=== PATIENT | male | born 1945 | race Caucasian/White ===

== ENCOUNTER 2023-02-19 18:08 | Observation (INO) | payer MEDICARE, SELFPAY ==
[2023-02-19] VITALS (12 sets, daily range): BP systolic 115–159; BP diastolic 59–85; PULSE 97–118; RESP 13–31; TEMP 36.6–36.8; O2SAT 91–97; BMI 32.8
--- NOTE | 2023-02-19 18:30 | DI.RAD.S_ITS ---
PROCEDURE: XR CHEST 1V INDICATIONS: chest pain TECHNIQUE: One view of the chest was acquired. COMPARISON: None. FINDINGS: Surgical changes and devices: None. Lungs and pleura: Lungs are clear. No pleural effusions or pneumothorax. Mediastinum: Mediastinal contours appear normal. Heart size is normal. Bones and chest wall: No suspicious bony lesions. Overlying soft tissues appear unremarkable. IMPRESSION: No acute cardiopulmonary pathology. Dictated by: Moses Dickinson M.D. on 02/19/2023 at 19:07 Approved by: Moses Dickinson M.D. on 02/19/2023 at 19:07
[2023-02-19] MEDS: SODIUM CHLORIDE 0.9% 1,000 ML 1000 ML IV (18:56)
[2023-02-19 18:57] LABS: Add Manual Diff / Slide Review NO; Basophils Absolute Auto 100 /uL (0-100); Basophils Percent Auto 0.7 % (0-2); Eosinophils Absolute Auto 400 /uL (0-450); Eosinophils Percent Auto 3.3 % (2-4); Hemoglobin 12.5 g/dL (13.5-17.5); Lymphocytes Absolute Auto 1700 /uL (1100-4500); Lymphocytes Percent Auto 13.7 % (25-40); Mean Corpuscular HGB Conc 32.7 % (30-36); Mean Corpuscular Volume 100.9 fL (80-100); Monocytes Absolute Auto 1200 /uL (0-900); Monocytes Percent Auto 9.3 % (3-14); Neutrophils Absolute Auto 9100 /uL (1500-7000); Platelet Count 276 X10^3/uL (150-400); Red Blood Cell Count 3.77 X10^6/uL (4.5-5.9); Red Cell Distribution Width 13.7 % (11.6-14.8); White Blood Cell Count 12.5 X10^3/uL (4.5-11.0)
--- NOTE | 2023-02-19 19:01 | PC.NURSE ---
Pt's skin is generalized bright red and flaky. Pt reports his skin is painful. He has a softball sixe wound on his right lower extremity that the pt does not know how long has been there. Wound bed is black and has slough. Wound culture obtained.
--- NOTE | 2023-02-19 19:10 | ED_ITS ---
HPI - SOB/Dyspnea General Chief Complaint: Shortness of Breath/Dyspnea Stated Complaint: sent for a CT Time Seen by Provider: 02/19/23 18:32 Source: patient Mode of arrival: Wheelchair Limitations: no limitations History of Present Illness HPI Narrative: Patient 77-year-old male history of psoriasis, hypertension COPD presenting today with a variety of symptoms. He has been getting light therapy for his psoriasis since June however his ex- and he knows that his skin has gotten extremely red over the past 1 month. He has a sore on his right leg which is painful and oozing it has been there for awhile. Does not seem to be any worse. He was seen by his PCP today concern for bilateral lower extremity swelling possible DVT and possible PE. He does report that he is a little more short of breath he denies any orthopnea but definitely has dyspnea with exertion. He denies any chest pain palpitations. He has not had any fever. Reports going to [facility] couple weeks ago where they did blood work thought that he might have a blood infection put him on steroids and an antibiotic. Ex- reports that he is not any better. Related Data Home Medications Medication Instructions Recorded Confirmed atorvastatin 10 mg tablet 10 mg PO DAILY 02/19/23 02/19/23 lisinopril 20 mg tablet 20 mg PO DAILY 02/19/23 02/19/23 Allergies Allergy/AdvReac Type Severity Reaction Status Date / Time No Known Drug Allergies Allergy Verified 02/19/23 19:05 Patient History Social History household members: none Smoking Status: Current every day smoker alcohol intake: former Smoking Status: Current every day smoker tobacco type: cigarettes alcohol intake frequency: 0-2 drinks per day Substance Use Type: does not use Exam Initial Vital Signs Initial Vital Signs: Vital Signs Temperature 98.3 F 02/19/23 18:14 Pulse Rate 110 H 02/19/23 18:14 Respiratory Rate 22 02/19/23 18:14 Blood Pressure 143/73 H 02/19/23 18:14 Pulse Oximetry 97 02/19/23 18:14 Oxygen Delivery Method Room Air 02/19/23 18:14 GENERAL: Alert 77-year-old male and in no acute distress. HEENT: Head atraumatic,EOMI, pupils reactive, face symmetric, moist mucous membranes. No mucosal sloughing CARDIOVASCULAR: Tachycardic regular RESPIRATORY: Slight wheezing bilaterally no rales or rhonchi no conversational dyspnea ABDOMEN: Soft, nontender. Normoactive bowel sounds all 4 quadrants. No guarding or rebound. EXTREMITIES: Normal range of motion, no clubbing. Bilateral pitting edema left greater than right. Neurovascularly intact NEUROLOGICAL: Alert and oriented x4.Normal gait and speech. Cranial nerves II through XII grossly intact. SKIN: Erythematous skin from neck to toes, blanchable, wound right lateral calf draining crusted over appears chronic but very foul smelling. 6cmx 6cm. Rest of extremely dry and flaky Course Orders Ordered: ED Orders 02/19/23 18:30 XR chest 1V Stat Wound Culture and Gram Stain Stat EKG-12 Lead Stat 02/19/23 18:40 Complete Blood Count AUTO DIFF Stat Comprehensive Metabolic Panel Stat D Dimer Stat Lipase Stat Magnesium Stat NT-proBNP (BNP-Adult 18+) Stat PTT Partial Thromboplastin Jarocho Stat Procalcitonin Stat Prothrombin Time INR Stat Troponin & CK Cardiac Panel Stat 02/19/23 19:08 Blood Culture Stat 02/19/23 19:13 US periph venous low extrem bi Stat 02/19/23 19:40 CT angio chest PE protocol Stat Acetaminophen (Acetaminophen 325 Mg Tablet) 650 mg PO Q6H PRN PRN Reason: Fever/Mild Pain (1-3) Atorvastatin Calcium (Atorvastatin 20 Mg Tablet) 10 mg PO DAILY ELY Calcium Carbonate (Calcium Carbonate 500 Mg Tab) 1,000 mg PO Q4HR PRN PRN Reason: Dyspepsia Hydralazine HCl (Hydralazine 25 Mg Tablet) 25 mg PO Q6HR PRN PRN Reason: Hypertension Hydromorphone HCl (Hydromorphone 0.5 Mg Inj) 0.5 mg IV Q2H PRN PRN Reason: Pain, Severe (7-10) Ceftriaxone Sodium 2,000 mg/ (Sodium Chloride) 100 mls @ 200 mls/hr IV Q24H ELY Lisinopril (Lisinopril 20 Mg Tablet) 20 mg PO DAILY ELY Melatonin (Melatonin 3 Mg Tablet) 9 mg PO BEDTIME PRN PRN Reason: insomnia Methylprednisolone (Methylprednisolone 125 Mg/2 Ml Vial) 60 mg IV Q8H ELY Naloxone HCl (Naloxone 0.4 Mg/Ml Vial) 0.2 mg IV Q2MIN PRN PRN Reason: Opiate Reversal Ondansetron HCl (Ondansetron 4 Mg/2 Ml Inj) 4 mg IV Q8HR PRN PRN Reason: Nausea And Vomiting Oxycodone HCl (Oxycodone Ir 5 Mg Tablet) 5 mg PO Q3H PRN PRN Reason: Pain, Moderate (4-6) Discontinued Medications Albuterol/Ipratropium (Albuterol/Ipratropium 3 Ml Ampul) 3 ml INH NOW ONE Stop: 02/19/23 19:11 Last Admin: 02/19/23 19:18 Dose: 3 ml Documented By: Sodium Chloride (Normal Saline 0.9%) 1,000 mls @ 1,000 mls/hr IV BOLUS ONE Stop: 02/19/23 19:32 Last Infusion: 02/19/23 20:04 Dose: Infused Documented By: Admin: 02/19/23 18:56 Dose: 1,000 mls/hr Documented By: MARKEL Ceftriaxone Sodium 2,000 mg/ (Sodium Chloride) 100 mls @ 200 mls/hr IV NOW ONE Stop: 02/19/23 22:31 Last Infusion: 02/19/23 23:10 Dose: Infused Documented By: Admin: 02/19/23 22:40 Dose: 200 mls/hr Documented By: DELORES Methylprednisolone (Methylprednisolone 125 Mg/2 Ml Vial) 125 mg IV NOW ONE Stop: 02/19/23 19:11 Last Admin: 02/19/23 19:25 Dose: 125 mg Documented By: DELORES Vital Signs Vital signs: Vital Signs - 8 hr 02/19/23 18:14 02/19/23 18:33 02/19/23 18:33 Temperature 98.3 F Pulse Rate 110 H 118 H Respiratory Rate 22 Blood Pressure 143/73 H 144/76 H Pulse Oximetry 97 94 Oxygen Delivery Method Room Air Oxygen Flow Rate 02/19/23 19:00 02/19/23 19:00 02/19/23 19:30 Temperature Pulse Rate 114 H Respiratory Rate 30 H Blood Pressure 122/80 115/66 Pulse Oximetry 95 Oxygen Delivery Method Oxygen Flow Rate 02/19/23 19:30 02/19/23 20:00 02/19/23 20:00 Temperature Pulse Rate 106 H 104 H Respiratory Rate 18 24 Blood Pressure 125/63 Pulse Oximetry 94 94 Oxygen Delivery Method Oxygen Flow Rate 02/19/23 20:30 02/19/23 20:30 02/19/23 21:00 Temperature Pulse Rate 101 H Respiratory Rate 15 Blood Pressure 130/63 125/60 Pulse Oximetry 91 Oxygen Delivery Method Oxygen Flow Rate 02/19/23 21:00 02/19/23 21:30 02/19/23 21:30 Temperature Pulse Rate 99 H 97 H Respiratory Rate 20 17 Blood Pressure 125/59 L Pulse Oximetry 93 91 Oxygen Delivery Method Room Air Oxygen Flow Rate 02/19/23 22:00 02/19/23 22:00 02/19/23 22:30 Temperature Pulse Rate 106 H Respiratory Rate 31 H Blood Pressure 138/85 130/69 Pulse Oximetry 95 Oxygen Delivery Method Nasal Cannula Oxygen Flow Rate 2 02/19/23 22:30 Temperature Pulse Rate 106 H Respiratory Rate 21 Blood Pressure Pulse Oximetry 94 Oxygen Delivery Method Oxygen Flow Rate MDM - SOB/Dyspnea Lab Data 02/19/23 18:40 02/19/23 18:40 Labs: Lab Results 02/19/23 Range/Units 18:40 WBC 12.5 H (4.5-11.0) X10^3/uL RBC 3.77 L (4.5-5.9) X10^6/uL Hgb 12.5 L (13.5-17.5) g/dL Hct 38.0 L (41-53) % MCV 100.9 H (80-100) fL MCH 33.0 (26-34) PG MCHC 32.7 (30-36) % RDW 13.7 (11.6-14.8) % Plt Count 276 (150-400) X10^3/uL Neut % (Auto) 73.0 (50-75) % Lymph % (Auto) 13.7 L (25-40) % [place] % (Auto) 9.3 (3-14) % Eos % (Auto) 3.3 (2-4) % Baso % (Auto) 0.7 (0-2) % Neut # (Auto) 9100 H (6256-4904) /uL Lymph # (Auto) 1700 (7023-3721) /uL [place] # (Auto) 1200 H (0-900) /uL Eos # (Auto) 400 (0-450) /uL Baso # (Auto) 100 (0-100) /uL PT 12.2 (10.1-12.7) SECONDS INR 1.1 (0.9-1.3) APTT 32 (26-36) SECONDS D-Dimer 4006 H (<500) ng/ml Sodium 140 (137-145) mmol/L Potassium 4.0 (3.4-5.1) mmol/L Chloride 105 (98-107) mmol/L Carbon Dioxide 26 (22-32) mmol/L BUN 22 H (9-20) mg/dL Creatinine 0.89 (0.66-1.25) mg/dL Estimated GFR > 60 (>60) mL/min BUN/Creatinine Ratio 24.7 H (6-22) Glucose 88 (80-110) mg/dL Calcium 9.2 (8.4-10.2) mg/dL Magnesium 2.0 (1.6-2.3) mg/dL Total Bilirubin 0.2 (0.2-1.3) mg/dL AST 31 (17-59) IU/L ALT 29 (<50) IU/L Alkaline Phosphatase 79 (38-126) U/L Total Creatine Kinase 84 (55-170) U/L Troponin I < 0.012 (0.01-0.034) ng/mL NT-Pro-B Natriuret Pep 94 (<450) pg/mL Total Protein 7.5 (6.3-8.2) g/dL Albumin 3.9 (3.5-5.0) g/dL Globulin 3.6 (1.7-4.1) g/dL Albumin/Globulin Ratio 1.1 (1.0-2.8) Lipase 52 (23-300) U/L Procalcitonin 0.09 (<0.5) ng/mL Imaging Data Chest x-ray: Radiologist's Impression: PROCEDURE: XR CHEST 1V INDICATIONS: chest pain TECHNIQUE: One view of the chest was acquired. COMPARISON: None. FINDINGS: Surgical changes and devices: None. Lungs and pleura: Lungs are clear. No pleural effusions or pneumothorax. Mediastinum: Mediastinal contours appear normal. Heart size is normal. Bones and chest wall: No suspicious bony lesions. Overlying soft tissues appear unremarkable. IMPRESSION: No acute cardiopulmonary pathology. Dictated by: Moses Dickinson M.D. on 02/19/2023 at 19:07 US - DVT: Radiologist's Impression: PROCEDURE: US PERIPH VENOUS LOW EXTREM BI INDICATIONS: EDEMA TECHNIQUE: Real-time imaging, as well as color and pulse Doppler interrogation, were performed of the deep veins of both legs from the inguinal ligament to the popliteal fossa, with documentation of the visualized calf veins. COMPARISON: None. FINDINGS: Right: The common femoral, femoral and popliteal veins are normally compressible, and free of intraluminal thrombus. Color and pulse Doppler demonstrate normal phasic intravascular flow. There is normal augmentation response to distal compression maneuver. Calf veins are not well seen due to soft tissue edema. Left: The common femoral, femoral and popliteal veins are normally compressible, and free of intraluminal thrombus. Color and pulse Doppler demonstrate normal phasic intravascular flow. There is normal augmentation response to distal compression maneuver. Calf veins are not well seen due to soft tissue edema. IMPRESSION: No findings of deep venous thrombosis in either lower extremity. Dictated by: Teodoro Mak M.D. on 02/19/2023 at 20:06 CT scan - chest: Radiologist's Impression: PROCEDURE: CT ANGIO CHEST PE PROTOCOL INDICATIONS: sob with very high dimer TECHNIQUE: After the administration of intravenous contrast, 2 mm thick sections acquired from the pulmonary apices to the posterior costophrenic angles. 3-dimensional maximum intensity projection (MIP) coronal and sagittal reformats were then acquired through the thorax. For radiation dose reduction, the following was used: automated exposure control, adjustment of mA and/or kV according to patient size. COMPARISON: [facility], , XR CHEST 1V, 02/19/2023, 18:36. FINDINGS: Image quality: Excellent. Pulmonary arteries: Pulmonary arteries are normal in size, and demonstrate no intraluminal filling defects to suggest central pulmonary embolism. Lungs and pleura: No focal consolidation. Mild subpleural septal thickening. No pleural effusions or pneumothorax. Central and peripheral airways are patent. Mediastinum: Heart size is normal, without pericardial effusion. Moderate coronary artery atherosclerosis. No mediastinal or hilar adenopathy. Thoracic aorta is normal in caliber and enhancement. Esophagus is normal in caliber. There is a small hiatal hernia. Bones and chest wall: No suspicious bony lesions. Ribs and thoracic spine appear intact throughout. Thyroid gland is unremarkable. No axillary or supraclavicular adenopathy. Abdomen: There is a 2.7 cm is aphasic cyst in the superior pole of the right kidney. Visualized upper abdominal solid organs appear normal in the early arterial phase of enhancement. IMPRESSION: 1. No evidence for pulmonary embolism. 2. Moderate coronary artery atherosclerosis. 3. Mild subpleural septal thickening. No focal consolidation. No pleural effusion or pneumothorax. Dictated by: Teodoro Mak M.D. on 02/19/2023 at 20:51 ECG Data Interpretation: Sinus rhythm rate 107 IA interval 168 QRS 120 QTC 504 right bundle-branch block present no priors to compare MDM Narrative Medical decision making narrative: Patient 77-year-old male presenting today with variety of symptoms. He does have some wheezing shortness of breath history of COPD on exam. He is given Solu-Medrol and DuoNeb requiring 1-2 L of oxygen. No obvious shortness of breath or tachypnea. He initially was sent here by PCP concern for DVT and PE. His D-dimer is found to be significantly elevated 4000. Bilateral ultrasounds not show any DVT CT angio ordered she is not show any pulmonary embolism. BNP is negative troponin is negative. But he does have significant swelling of his lower extremities. He has a rash and a right leg wound. He reports that he has psoriasis followed by Dermatology but not actually seen the doctor he was or twice a week for light therapy. He has been doing this for number months he did not become erythematous until this month and it has gotten significantly worse. He got a lot of dry flaky skin. Mucous membranes are not involved. He was on Keflex for a week however this started before then. No concern for Guo-Elder or TEN at this time without mucosal involvement and ongoing for number weeks. Full- body impressive erythema possible reaction I think unlikely to be cellulitic. He is got this wound on his right leg which has been there for awhile but getting worse in his very foul-smelling. Wound culture has been sent. Think this is some sort of reaction versus flare of psoriasis. He does not have any blisters. He does have mild leukocytosis of 12 but was on steroids for awhile. He is afebrile his lactate and procalcitonin are negative. Records from [facility] have been received and reviewed Bailey Plata, hospitalist updated patient's symptoms test results discussion about how to proceed. At this time agrees may benefit from admission. Discharge Plan Departure Patient Disposition: Admitted As Inpatient Clinical Impression: COPD (chronic obstructive pulmonary disease), Cellulitis Admit Date/Time: 02/19/23 22:30 Admit Provider: Allen Avalos
[2023-02-19 19:11] LABS: INR 1.1 (0.9-1.3); Prothrombin Time 12.2 SECONDS (10.1-12.7)
[2023-02-19 19:13] LABS: PTT Partial Thromboplastin Tim 32 SECONDS (26-36)
--- NOTE | 2023-02-19 19:13 | DI.US.S_ITS ---
PROCEDURE: US PERIPH VENOUS LOW EXTREM BI INDICATIONS: EDEMA TECHNIQUE: Real-time imaging, as well as color and pulse Doppler interrogation, were performed of the deep veins of both legs from the inguinal ligament to the popliteal fossa, with documentation of the visualized calf veins. COMPARISON: None. FINDINGS: Right: The common femoral, femoral and popliteal veins are normally compressible, and free of intraluminal thrombus. Color and pulse Doppler demonstrate normal phasic intravascular flow. There is normal augmentation response to distal compression maneuver. Calf veins are not well seen due to soft tissue edema. Left: The common femoral, femoral and popliteal veins are normally compressible, and free of intraluminal thrombus. Color and pulse Doppler demonstrate normal phasic intravascular flow. There is normal augmentation response to distal compression maneuver. Calf veins are not well seen due to soft tissue edema. IMPRESSION: No findings of deep venous thrombosis in either lower extremity. Dictated by: Teodoro Mak M.D. on 02/19/2023 at 20:06 Approved by: Teodoro Mak M.D. on 02/19/2023 at 20:08
[2023-02-19 19:17] LABS: Alanine Aminotransferase 29 IU/L (<50); Albumin 3.9 g/dL (3.5-5.0); Albumin Globulin Ratio 1.1 (1.0-2.8); Alkaline Phosphatase 79 U/L (38-126); Aspartate Aminotransferase 31 IU/L (17-59); BUN Creatinine Ratio 24.7 (6-22); Bilirubin Total 0.2 mg/dL (0.2-1.3); Blood Urea Nitrogen 22 mg/dL (9-20); Calcium 9.2 mg/dL (8.4-10.2); Carbon Dioxide 26 mmol/L (22-32); Chloride 105 mmol/L (98-107); Creatine Kinase 84 U/L (55-170); Estimated Glomerular Filt Rate > 60 mL/min (>60); Globulin 3.6 g/dL (1.7-4.1); Glucose 88 mg/dL (80-110); HEMOLYSIS < 15 (0-50); Lipase 52 U/L (23-300); Sodium 140 mmol/L (137-145); Total Protein 7.5 g/dL (6.3-8.2)
[2023-02-19] MEDS: ALBUTEROL/IPRATROPIUM 3 ML AMPUL INH (19:18)
[2023-02-19 19:20] LABS: D Dimer 4006 ng/ml (<500)
[2023-02-19] MEDS: methylPREDNISolone 125 MG/2 ML VIAL IV (19:25)
[2023-02-19 19:28] LABS: Troponin I < 0.012 ng/mL (0.01-0.034)
[2023-02-19 19:34] LABS: NT-proBNP (BNP-Adult 18+) 94 pg/mL (<450); Procalcitonin 0.09 ng/mL (<0.5)
--- NOTE | 2023-02-19 19:40 | DI.CT.S_ITS ---
PROCEDURE: CT ANGIO CHEST PE PROTOCOL INDICATIONS: sob with very high dimer TECHNIQUE: After the administration of intravenous contrast, 2 mm thick sections acquired from the pulmonary apices to the posterior costophrenic angles. 3-dimensional maximum intensity projection (MIP) coronal and sagittal reformats were then acquired through the thorax. For radiation dose reduction, the following was used: automated exposure control, adjustment of mA and/or kV according to patient size. COMPARISON: [facility], CR, XR CHEST 1V, 02/19/2023, 18:36. FINDINGS: Image quality: Excellent. Pulmonary arteries: Pulmonary arteries are normal in size, and demonstrate no intraluminal filling defects to suggest central pulmonary embolism. Lungs and pleura: No focal consolidation. Mild subpleural septal thickening. No pleural effusions or pneumothorax. Central and peripheral airways are patent. Mediastinum: Heart size is normal, without pericardial effusion. Moderate coronary artery atherosclerosis. No mediastinal or hilar adenopathy. Thoracic aorta is normal in caliber and enhancement. Esophagus is normal in caliber. There is a small hiatal hernia. Bones and chest wall: No suspicious bony lesions. Ribs and thoracic spine appear intact throughout. Thyroid gland is unremarkable. No axillary or supraclavicular adenopathy. Abdomen: There is a 2.7 cm is aphasic cyst in the superior pole of the right kidney. Visualized upper abdominal solid organs appear normal in the early arterial phase of enhancement. IMPRESSION: 1. No evidence for pulmonary embolism. 2. Moderate coronary artery atherosclerosis. 3. Mild subpleural septal thickening. No focal consolidation. No pleural effusion or pneumothorax. Dictated by: Teodoro Mak M.D. on 02/19/2023 at 20:51 Approved by: Teodoro Mak M.D. on 02/19/2023 at 20:56
[2023-02-19] MEDS: cefTRIAXone 2,000 MG in SODIUM CHLORIDE 0.9% 100 ML 200 MG IV (22:40)
--- NOTE | 2023-02-20 00:23 | P.HP_ITS ---
History of Present Illness History of Present Illness Chief complaint: sent for a CT Narrative: 77 years old male with history of psoriasis, hypertension, hyperlipidemia, COPD, presented to the ER after referral by his PCP for concern for bilateral lower extremity swelling and rule out of DVT/PE. He also reports some mild shortness of breath on exertion. He is currently on light therapy for his psoriasis since June but not getting better. In the last month he developed some erythema around his body. He also reports right leg infection develop after had blister and subsequent infection. He was on some p.o. antibiotics without any improvement. Denies any fever, cough, chest pain, palpitations, nausea, vomiting, abdominal pain, diarrhea or dysuria. In the ER he was given ceftriaxone 2 g IV, methylprednisolone 125 mg IV and 1 L of bolus NS. Initial laboratory shows WBC 12.5, H&H 12.5/38, platelets 276, D-dimer 4006, sodium 140, potassium 4, creatinine 0.89, glucose 88, LFTs normal, troponin 0.01, BNP 94, lipase 52, procalcitonin 0.09. CT of the chest negative for PE, Doppler ultrasound negative for DVT, chest x-ray unremarkable. Vital signs shows temperature 97.9, pulse 112, blood pressure 159/76, pulse oximeter 93% on room air. [facility] Social History household members: none Smoking Status: Current every day smoker alcohol intake: former Meds Home Medications and Allergies Home Medications Medication Instructions Recorded Confirmed Type atorvastatin 10 mg tablet 10 mg PO DAILY 02/19/23 02/19/23 History lisinopril 20 mg tablet 20 mg PO DAILY 02/19/23 02/19/23 History Allergies Allergy/AdvReac Type Severity Reaction Status Date / Time No Known Drug Allergies Allergy Verified 02/19/23 19:05 Review of Systems Review of Systems ROS: Yes All systems reviewed with the patient and are negative except as otherwise documented Constitutional Constitutional: Reports as per HPI and Reports system reviewed and no additional complaints, except as documented Eyes Eyes: Reports as per HPI and Reports system reviewed and no additional complaints, except as documented ENT Ears, Nose, Mouth, and Throat: Yes as per HPI and Yes system reviewed and no additional complaints, except as documented Cardiovascular Cardiovascular: Reports system reviewed and no additional complaints, except as documented Respiratory Respiratory: Reports system reviewed and no additional complaints, except as documented Gastrointestinal Gastrointestinal: Reports system reviewed and no additional complaints, except as documented Genitourinary Genitourinary: Reports system reviewed and no additional complaints, except as documented Musculoskeletal Musculoskeletal: Reports system reviewed and no additional complaints, except as documented, Reports abnormal gait and Reports numbness Neurologic Neurologic: Reports system reviewed and no additional complaints, except as documented, Reports abnormal gait, Reports confusion and Reports numbness Psychiatric Psychiatric: Reports system reviewed and no additional complaints, except as documented and Reports confusion Exam Vital Signs (past 8 hours): - 02/19/23 18:14 02/19/23 18:33 02/19/23 18:33 Temperature 98.3 F Pulse Rate 110 H 118 H Respiratory Rate 22 Blood Pressure 143/73 H 144/76 H Pulse Oximetry 97 94 Oxygen Delivery Method Room Air Oxygen Flow Rate 02/19/23 19:00 02/19/23 19:00 02/19/23 19:30 Temperature Pulse Rate 114 H Respiratory Rate 30 H Blood Pressure 122/80 115/66 Pulse Oximetry 95 Oxygen Delivery Method Oxygen Flow Rate 02/19/23 19:30 02/19/23 20:00 02/19/23 20:00 Temperature Pulse Rate 106 H 104 H Respiratory Rate 18 24 Blood Pressure 125/63 Pulse Oximetry 94 94 Oxygen Delivery Method Oxygen Flow Rate 02/19/23 20:30 02/19/23 20:30 02/19/23 21:00 Temperature Pulse Rate 101 H Respiratory Rate 15 Blood Pressure 130/63 125/60 Pulse Oximetry 91 Oxygen Delivery Method Oxygen Flow Rate 02/19/23 21:00 02/19/23 21:30 02/19/23 21:30 Temperature Pulse Rate 99 H 97 H Respiratory Rate 20 17 Blood Pressure 125/59 L Pulse Oximetry 93 91 Oxygen Delivery Method Room Air Oxygen Flow Rate 02/19/23 22:00 02/19/23 22:00 02/19/23 22:30 Temperature Pulse Rate 106 H Respiratory Rate 31 H Blood Pressure 138/85 130/69 Pulse Oximetry 95 Oxygen Delivery Method Nasal Cannula Oxygen Flow Rate 2 02/19/23 22:30 02/19/23 23:00 02/19/23 23:00 Temperature Pulse Rate 106 H 105 H Respiratory Rate 21 13 Blood Pressure 125/66 Pulse Oximetry 94 95 Oxygen Delivery Method Oxygen Flow Rate 02/19/23 23:40 02/19/23 23:53 Temperature 97.9 F Pulse Rate 112 H Respiratory Rate 19 Blood Pressure 159/76 H Pulse Oximetry 93 Oxygen Delivery Method Room Air Oxygen Flow Rate 0 Oxygen Delivery Method Room Air Oxygen Flow Rate 0 Const General: cooperative, comfortable and well developed Orientation: alert and oriented x3 [facility] Head: normal to inspection, normocephalic and atraumatic Face and sinus: normal facial exam Mouth: oral mucosae normal and moist mucous membranes Throat: posterior oropharynx normal Eyes General: appearance normal, both eyes and all related structures Pupils: PERRL EOM: EOM intact bilaterally Neck Neck: normal visual inspection and full ROM Chest Chest: normal inspection of the chest Resp Effort & Inspection: normal respiratory effort and able to speak in complete sentences Auscultation: clear to auscultation bilaterally Cardio Palpation: normal PMI Rate: regular rate Rhythm: regular rhythm Heart Sounds: S1 normal and S2 normal GI Inspection: normal to inspection Palpation: soft and no hepatosplenomegaly Auscultation: normal bowel sounds Skin General: no rashes or lesions noted Lesions: no lesions Rashes: no rashes Trauma: no lacerations or abrasions Neuro General: patient alert, patient awake, patient oriented x3 and no focal motor deficits Cranial Nerves: CN's II-XI intact bilaterally Cognition: normal cognition Speech: speech normal Gait: normal gait Motor: muscle tone normal throughout Sensory Exam: no sensory deficits noted Extrem General: full ROM and no calf tenderness Psych Appearance: grossly normal Mental Status: mental status grossly normal Speech and Movement: speech and movement normal Objective Labs 02/19/23 18:40 02/19/23 18:40 Labs: Laboratory Results - last 24 hr 02/19/23 18:40 WBC 12.5 H RBC 3.77 L Hgb 12.5 L Hct 38.0 L MCV 100.9 H MCH 33.0 MCHC 32.7 RDW 13.7 Plt Count 276 Neut % (Auto) 73.0 Lymph % (Auto) 13.7 L [place] % (Auto) 9.3 Eos % (Auto) 3.3 Baso % (Auto) 0.7 Neut # (Auto) 9100 H Lymph # (Auto) 1700 [place] # (Auto) 1200 H Eos # (Auto) 400 Baso # (Auto) 100 PT 12.2 INR 1.1 APTT 32 D-Dimer 4006 H Sodium 140 Potassium 4.0 Chloride 105 Carbon Dioxide 26 BUN 22 H Creatinine 0.89 Estimated GFR > 60 BUN/Creatinine Ratio 24.7 H Glucose 88 Calcium 9.2 Magnesium 2.0 Total Bilirubin 0.2 AST 31 ALT 29 Alkaline Phosphatase 79 Total Creatine Kinase 84 Troponin I < 0.012 NT-Pro-B Natriuret Pep 94 Total Protein 7.5 Albumin 3.9 Globulin 3.6 Albumin/Globulin Ratio 1.1 Lipase 52 Procalcitonin 0.09 Assessment & Plan Assessment and plan (1) Cellulitis: Status: Acute Plan: Cellulitis versus psoriasis flare We will start the patient on antibiotics Follow-up on the blood cultures Wound care consult (2) Psoriasis: Status: Acute Plan: Patient currently on light therapy without much improvement. Suspect worsening of his psoriasis. We will start the patient on steroids Dermatology consult as outpatient (3) COPD (chronic obstructive pulmonary disease): Status: Acute Plan: Stable. Albuterol as needed (4) HTN (hypertension): Status: Acute Plan: Restart lisinopril (5) Hyperlipidemia: Status: Acute Plan: Restart atorvastatin Time Spent With Patient Time with patient: 50 to 69 minutes with 50% spent counseling/coordinating care Quality VTE Deep Vein Thrombosis/Pulmonary Embolism Present on Admission: No MIPS - Admit I confirm the patient?s Advance Care Plan is present, Code status is documented, Surrogate decision maker is in patient?s record [If Yes, STOP here]: Yes MIPS - Meds 'Current medications' to include all prescriptions, [id number] products, herbals, cannabis/cannabidiol products, and vitamin/mineral/dietary (nutritional) supplements. I have utilized all available resources to obtain, update, or review the patient?s current medications. [If Yes, STOP here]: Yes
[2023-02-20] MEDS: methylPREDNISolone 125 MG/2 ML VIAL 60 MG IV (00:54)
[2023-02-20 01:10] LABS: Appearance Urine UA CLEAR; Bilirubin Urine UA NEGATIVE (NEGATIVE); Color Urine UA YELLOW; Glucose Urine UA NEGATIVE (Negative); Ketones Urine UA TRACE (NEGATIVE); Leukocyte Esterase Urine UA NEGATIVE (NEGATIVE); Nitrite Urine UA NEGATIVE (Negative); Occult Blood Urine UA NEGATIVE (Negative); Protein Urine UA NEGATIVE (Negative); Specific Gravity Urine UA 1.025 (1.000-1.035); pH Urine UA 5.5 (4.5-8.0)
[2023-02-20 01:16] LABS: Hyaline Casts Urine 1-5/LPF; Mucus Urine 2+ (Negative)
[2023-02-20 01:17] LABS: Bacteria Urine None Seen; Culture Indicated Urine Cult Not Indicated; RBC Urine None Seen (0-5/HPF); Squamous Epithelial Cell Urine 0-1 /HPF (0-5/HPF); WBC Urine None Seen (0-5/HPF)
--- NOTE | 2023-02-20 01:20 | PC.WOUNDPHOT ---
RIGHT LOWER EXTREMITY- RAMOS RIGHT LOWER EXTREMITY- CALF
[2023-02-20 01:49] LABS: MRSA (Nasal) PCR Not Detected (Not Detect)
[2023-02-20 06:03] VITALS: BP 110/62; PULSE 92; RESP 20; TEMP 35.8; O2SAT 93
[2023-02-20 08:03] VITALS: BP 122/76; PULSE 93; RESP 18; TEMP 36.5; O2SAT 94
[2023-02-20] MEDS: lisinopriL 20 MG TABLET PO (08:38)
[2023-02-20] MEDS: ATORVASTATIN 20 MG TABLET 10 MG PO (08:38)
--- NOTE | 2023-02-20 11:14 | CM.DANOTE ---
Initial DCP Assessment Note Reviewed EMR and team rounds for pt's medical status and initial anticipated d/c needs. Met with pt at bedside to introduce self and role. 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 Payor: Medicare Pt is a 77 year-old M who presented to the ED on 02/19/23 for several symptoms, including shortness of breath, bilateral lower-extremity swelling, psoriasis, and a painful/oozing/non-healing wound on his right leg, despite having been on oral ABO's for the last few weeks. Evaluation demonstrates dx of cellulitis, he was started on IV ABO's and admitted to the floor. Pt states that he has been receiving light therapy since June for the psoriasis, and is seen by his Embosser Apprentice twice weekly for ongoing tx. He denies any need for OP resources at this time, and will defer to his Embosser Apprentice for further OP tx recommendations for wound care management. Plan: Pt will d/c home today, his ex- will transport. F/u OP w/Embosser Apprentice. No further DCP needs indicated at this time. Discharge Planning/Care Management CM Discharge Assessment Start: 02/20/23 10:46 Freq: Status: Active Protocol: Document 02/20/23 10:46 DPL (Rec: 02/20/23 11:13 DPL [id number]) Discharge Planning Assessment Assigned Legal Aid ROMAN Day DPOA/Assigned Designee Name ROMAN Day Advance Directives? No History Provided By Patient,Medical Record Has Patient been admitted in last 30 No days? Prior Living Arrangements Mobile home Household Members none Comment Pt's mobile home is directly across from his ex-, Florecita 's mobile home. She is his primary support person when needed. Type of transporation used prior to Drives own vehicle admit Independent with ADL's Yes Is patient alert and oriented? Yes Comment N/A Caregiver for Another No Comment Twice per week Dermatology tx visits. Comment None Comment OP woundcare Barriers to Discharge No Discharge Plan Home Community Services Wound Care Transportation Arrangement Florecita ex-. Referrals Initiated None needed Whiteboard Updated in Patient Room with Yes name and ext. # of Legal Aid Review Status In Process Please Provide Date Initial DC 02/21/23 Assessment Was Performed
[2023-02-20] MEDS: DOXYCYCLINE HYCLATE 100 MG TABLET PO (11:47)
[2023-02-20 12:00] VITALS: BP 123/78; PULSE 78; RESP 18; TEMP 36.8; O2SAT 94
--- NOTE | 2023-02-20 14:51 | PC.NURSE ---
Patient A&O x4, d/c teaching done with family member, Yessenia, at bedside. All questions and concerns addressed. IV removed with no difficulty, pt antonio. well. Patient wishes to dress himself. REPORT DEVELOPER aware that patient needs to be taken down to private vehicle via wheelchair when ready.
--- NOTE | 2023-02-20 15:02 | PC.NURSE ---
Day shift: Paperwork signed and all questions answered. Has all personal belongings. Teachings done by Rickey Bowles RN. Left unit via WC at approx 1500. Pt's friend is driving him home. Has MD appointment on Saturday for his skin and stated he is planning to go. His VS have been WNL. RA 97%. Afebrile.
--- NOTE | 2023-02-20 19:50 | P.DS_ITS ---
History of Present Illness History of Present Illness Chief complaint: sent for a CT Narrative: Per admitting physician: 77 years old male with history of psoriasis, hypertension, hyperlipidemia, COPD, presented to the ER after referral by his PCP for concern for bilateral lower extremity swelling and rule out of DVT/PE. He also reports some mild shortness of breath on exertion. He is currently on light therapy for his psoriasis since June but not getting better. In the last month he developed some erythema around his body. He also reports right leg infection develop after had blister and subsequent infection. He was on some p.o. antibiotics without any improvement. Denies any fever, cough, chest pain, palpitations, nausea, vomiting, abdominal pain, diarrhea or dysuria. In the ER he was given ceftriaxone 2 g IV, methylprednisolone 125 mg IV and 1 L of bolus NS. Initial laboratory shows WBC 12.5, H&H 12.5/38, platelets 276, D-dimer 4006, sodium 140, potassium 4, creatinine 0.89, glucose 88, LFTs normal, troponin 0.01, BNP 94, lipase 52, procalcitonin 0.09. CT of the chest negative for PE, Doppler ultrasound negative for DVT, chest x-ray unremarkable. Vital signs shows temperature 97.9, pulse 112, blood pressure 159/76, pulse oximeter 93% on room air. Discharge Providers Provider Date of admission: 02/19/23 22:30 Discharge Date: 02/20/23 Consults: 02/19/23 23:38 Consult to Dietitian, Adult Routine Comment: Reason For Exam: weight loss approx 18 lbs per pt report 02/20/23 04:23 Consult to Wound Care Routine Comment: Consulting Provider: [facility] Discharge provider: William Garcia MD Summary Hospital Course Discharge Diagnosis: 1. Cellulitis 2. Psoriasis 3. COPD 4. Hypertension 5. Hyperlipidemia Hospital Course: Mr. Newman was admitted due to a skin infection on his right leg. He had no evidence of sepsis, his pain was controlled, and he was able to tolerate orals so was appropriate for treatment at home. He was discharged on antibiotics for a planned week course. I did discuss with his straight pin making machine operator and the patient has poorly controlled psoriasis due to resistance to trying topical and biologic treatments. He has planned follow up for dermatology this week. Exam Vital Signs (past 8 hours): - 02/20/23 12:00 Temperature 98.3 F Pulse Rate 78 Respiratory Rate 18 Blood Pressure 123/78 Pulse Oximetry 94 Oxygen Delivery Method Room Air Oxygen Flow Rate 0 Narrative Exam Narrative: GEN: no acute distress CV: regular rate and rhythm PULM: clear bilaterally ABD: soft, nontender EXT: scaly, erythematous skin, right lower leg shallow ulcer Objective Labs 02/19/23 18:40 02/19/23 18:40 Labs: Laboratory Results - last 24 hr 02/19/23 02/20/23 23:42 00:24 Urine Color Yellow Urine Appearance Clear Urine pH 5.5 Ur Specific [place] 1.025 Urine Protein Negative Urine Glucose (UA) Negative Urine Ketones Trace H Urine Occult Blood Negative Urine Nitrate Negative Urine Bilirubin Negative Urine Urobilinogen 1.0 Ur Leukocyte Esterase Negative Urine RBC None seen Urine WBC None seen Ur Squamous Epith Cells 0-1 /hpf Urine Bacteria None seen Hyaline Casts 1-5/lpf Urine Mucus 2+ H Ur Culture Indicated? Cult not indicated Nasal Screen MRSA (PCR) Not detected PFSH Social History household members: none Smoking Status: Current every day smoker alcohol intake: former Discharge Plan Discharge Plan Patient Disposition: Home Provider Discharge Comment: Mr. Newman came in with an ulcer on his leg. He was prescribed antibiotics for a possible skin infection. He should follow up with his straight pin making machine operator this week. Discharge orders & Medications Prescriptions: New doxycycline hyclate 100 mg tablet 100 mg PO BID Qty: 14 0RF Continued atorvastatin 10 mg tablet 10 mg PO DAILY lisinopril 20 mg tablet 20 mg PO DAILY Medication counseling provided by Pharmacist: Yes Diet/Activity/Treatments Diet: Regular Visit Report/Discharge Packet Instructions: DI for Cellulitis -- Adult, How to Prevent Falls, DI for Staph Infection, Doxycycline (By mouth) Stand Alone Forms: Patient Portal/API, Stroke Signs & Symptoms Discharge Data Attending Provider: Allen Avalos Admit Date/Time: 02/19/23 22:30 Quality VTE Deep Vein Thrombosis/Pulmonary Embolism Present on Admission: No
== END 2023-02-20 15:05 | disposition home or self-care (01) ==
LOC: ED 22:29 → AC 22:48
PROVIDERS: Admitting Provider Internal Medicine; Emergency Provider Emergency Medicine; Referring Provider Emergency Medicine; Visit Provider Internal Medicine
DX: L03.90 Cellulitis, unspecified (principal); L40.9 Psoriasis, unspecified; J44.9 Chronic obstructive pulmonary disease, unspecified; I10 Essential (primary) hypertension; E78.5 Hyperlipidemia, unspecified
CPT/HCPCS: 36415; 71045; 71275; 80053; 81001; 82550; 83690; 83735; 83880; 84145; 84484; 85025; 85379; 85610; 85730; 87040; 87070; 87075; 87077; 87147; 87186; 87205; 87797; 93005; 93970; 94640; 96361; 96365; 96375; 99284; 99285; G0378; J0696; J2930; Q9967

== ENCOUNTER → 2023-03-08 12:53 | Outpatient (CLI) | payer MEDICARE, SELFPAY ==
[2023-02-19 23:28] VITALS: BMI 32.8
== END ==
PROVIDERS: Referring Provider Internal Medicine; Visit Provider Surgery
DX: L03.115 Cellulitis of right lower limb (principal); L40.0 Psoriasis vulgaris; I10 Essential (primary) hypertension; J44.9 Chronic obstructive pulmonary disease, unspecified
CPT/HCPCS: 11042; 11045; 99204; 99214

== ENCOUNTER → 2023-03-19 10:29 | Outpatient (CLI) | payer MEDICARE, SELFPAY ==
[2023-02-19 23:28] VITALS: BMI 32.8
== END ==
LOC: WC 10:30
PROVIDERS: Referring Provider Internal Medicine; Visit Provider Surgery
DX: L03.115 Cellulitis of right lower limb (principal); L40.0 Psoriasis vulgaris; I10 Essential (primary) hypertension; R60.0 Localized edema; L53.9 Erythematous condition, unspecified; L97.812 Non-pressure chronic ulcer of other part of right lower leg with fat layer exposed
CPT/HCPCS: 11042

== ENCOUNTER → 2023-03-26 14:30 | Outpatient (CLI) | payer MEDICARE, SELFPAY ==
[2023-02-19 23:28] VITALS: BMI 32.8
== END ==
LOC: WC 14:31
PROVIDERS: Referring Provider Internal Medicine; Visit Provider Surgery
DX: L03.115 Cellulitis of right lower limb (principal); L97.812 Non-pressure chronic ulcer of other part of right lower leg with fat layer exposed
CPT/HCPCS: 11042

== ENCOUNTER → 2023-04-02 15:02 | Outpatient (CLI) | payer MEDICARE, SELFPAY ==
[2023-02-19 23:28] VITALS: BMI 32.8
== END ==
LOC: WC 15:06
PROVIDERS: Referring Provider Internal Medicine; Visit Provider Surgery
DX: L03.115 Cellulitis of right lower limb (principal); L97.812 Non-pressure chronic ulcer of other part of right lower leg with fat layer exposed; R60.0 Localized edema; L53.9 Erythematous condition, unspecified; I10 Essential (primary) hypertension
CPT/HCPCS: 11042; 99213

== ENCOUNTER → 2023-04-09 14:52 | Outpatient (CLI) | payer MEDICARE, SELFPAY ==
[2023-02-19 23:28] VITALS: BMI 32.8
== END ==
LOC: WC 14:53
PROVIDERS: Referring Provider Internal Medicine; Visit Provider Surgery
DX: L40.0 Psoriasis vulgaris (principal); L03.115 Cellulitis of right lower limb
CPT/HCPCS: 11042

== ENCOUNTER → 2023-04-23 14:42 | Outpatient (CLI) | payer OTHER, SELFPAY ==
[2023-02-19 23:28] VITALS: BMI 32.8
== END ==
PROVIDERS: Referring Provider Family Medicine; Visit Provider Surgery
DX: L97.212 Non-pressure chronic ulcer of right calf with fat layer exposed (principal); L03.115 Cellulitis of right lower limb; L40.0 Psoriasis vulgaris; R60.0 Localized edema; L53.9 Erythematous condition, unspecified; I10 Essential (primary) hypertension; J44.9 Chronic obstructive pulmonary disease, unspecified
CPT/HCPCS: 11042

== ENCOUNTER → 2023-05-07 11:12 | Outpatient (CLI) | payer OTHER, SELFPAY ==
[2023-02-19 23:28] VITALS: BMI 32.8
== END ==
LOC: WC 11:14
PROVIDERS: PCP Internal Medicine; Referring Provider Internal Medicine; Visit Provider Physician Assistant
DX: L97.812 Non-pressure chronic ulcer of other part of right lower leg with fat layer exposed (principal)
CPT/HCPCS: 99212

== ENCOUNTER → 2023-05-14 14:06 | Outpatient (CLI) | payer OTHER, SELFPAY ==
[2023-02-19 23:28] VITALS: BMI 32.8
== END ==
LOC: WC 14:12
PROVIDERS: PCP Internal Medicine; Referring Provider Internal Medicine; Visit Provider Surgery
DX: R60.0 Localized edema (principal); L53.9 Erythematous condition, unspecified; I10 Essential (primary) hypertension; F17.210 Nicotine dependence, cigarettes, uncomplicated
CPT/HCPCS: 99213; 99214